=== PATIENT | male | born 1955 | race Caucasian/White ===

== ENCOUNTER 2021-04-15 12:51 | Emergency (ER) | payer MEDICARE ==
[2021-04-15] MEDS ORDERED: CEPHALEXIN500 MG PO (17:36)
== END 2021-04-15 17:50 | disposition home or self-care (01) ==
LOC: ER1 12:51
DX: S61.411A Laceration without foreign body of right hand, initial encounter (principal); S70.312A Abrasion, left thigh, initial encounter; M25.562 Pain in left knee; E78.5 Hyperlipidemia, unspecified; I10 Essential (primary) hypertension; W19.XXXA Unspecified fall, initial encounter
CPT/HCPCS: 12001; 12002; 73130; 90715; 99283